=== PATIENT | male | born 1980 | race Two or more races ===

== ENCOUNTER 2020-06-15 15:50 | Outpatient (CLI) | payer OTHER | END 2020-06-15 17:53 | disposition home or self-care (01) | LOC: OFIC 805 15:50 | PROVIDERS: ATTEND Otolaryngology Otology & Neurotology | DX: H72.02 Central perforation of tympanic membrane, left ear (principal); H69.82 Other specified disorders of Eustachian tube, left ear; H90.12 Conductive hearing loss, unilateral, left ear, with unrestricted hearing on the contralateral side ==